=== PATIENT | female | born 1995 | race Caucasian/White ===

== ENCOUNTER 2020-06-08 12:40 | Emergency (ER) | payer OTHER, BC, SELFPAY ==
[2020-06-08 13:00] VITALS: BP 122/74; PULSE 105; RESP 16; TEMP 37.6; O2SAT 100
--- NOTE | 2020-06-08 13:03 | ED.EAR ---
HPI - Ear Problem General Chief complaint: Ear Stated complaint: left ear pain Time Seen by Provider: 06/08/20 12:58 Source: patient and RN notes reviewed Mode of arrival: ambulatory Limitations: no limitations History of Present Illness HPI Narrative: 24-year-old female presents with concern for left ear pain. Reports pain started yesterday. Reports drainage from the left ear. Denies any rhinorrhea, nasal congestion, sore throat, fever. MD Complaint: ear pain Related Data Home Medications Medication Instructions Recorded Confirmed Medical Cannibas 08/21/19 aripiprazole [Abilify] 15 mg PO DAILY 08/21/19 08/21/19 bupropion HCl [Wellbutrin XL] 150 mg PO QAM 08/21/19 08/21/19 escitalopram oxalate [Lexapro] 5 mg PO DAILY 08/21/19 08/21/19 escitalopram oxalate [Lexapro] 20 mg PO DAILY 08/21/19 08/21/19 hydroxyzine pamoate [Vistaril] 50 mg PO BID 08/21/19 08/21/19 levothyroxine 25 mcg PO DAILY 08/21/19 08/21/19 Allergies Allergy/AdvReac Type Severity Reaction Status Date / Time No Known Allergies Allergy Verified 08/21/19 17:42 Review of Systems Review of Systems: Narrative: CONSTITUTIONAL: Denies malaise, chills, sweats, or fever. EYES: Denies visual changes, redness, or discharge. ENT: Denies rhinorrhea, congestion, sinus pain, and sore throat. Reports right ear pain and drainage CARDIOVASCULAR: Denies chest pain, palpitations, or edema. RESPIRATORY: Denies cough or dyspnea. GASTROINTESTINAL: Denies abdominal pain, nausea, vomiting, diarrhea SKIN: Denies rash or itching. MUSCULOSKELETAL: Denies myalgia. NEUROLOGIC: Denies headache. All systems reviewed & are unremarkable except as noted in HPI and below PMFSH Comments At time of signature, agree with nursing past medical, surgical, social and family history. There is no relevant family history pertinent to the presenting complaint Exam Narrative: Exam Narrative: GENERAL: Well-appearing, well-nourished, and in no acute distress. HEAD: Normocephalic EYES: PERRLA, conjunctivae clear ENT: Nares clear, turbinates clear. Mucous membranes moist. TM pearly connell with sharp light reflex bilaterally; left tragal tenderness with edema and erythema noted to the auditory canal, no drainage noted. NECK: Supple. No lymphadenopathy CHEST: No respiratory distress, speaks in full sentences. HEART: Regular rate and rhythm. No murmur heard. SKIN: Warm, dry, no rash. NEURO: Alert and oriented x3. PSYCH: Normal mood and affect Course Course Emergency Course: Patient is aware of diagnosis, understands and agrees to treatment plan. Anticipatory guidance given. Patient agrees to follow-up as directed and is aware of reasons to seek care at the emergency department. Portions of this record may have been created with voice recognition software Vital Signs Vital signs: Vital Signs Temperature 99.6 F 06/08/20 13:00 Pulse Rate 105 H 06/08/20 13:00 Respiratory Rate 16 06/08/20 13:00 Blood Pressure 122/74 06/08/20 13:00 Pulse Oximetry 100 06/08/20 13:00 Temperature 99.6 F 06/08/20 13:00 Pulse Rate 105 H 06/08/20 13:00 Respiratory Rate 16 06/08/20 13:00 Blood Pressure 122/74 06/08/20 13:00 Pulse Oximetry 100 06/08/20 13:00 Reviewed. Medical Decision Making MDM Narrative Medical decision making narrative: Differential diagnosis considered: [place] virus, strep pharyngitis, allergic rhinitis, upper respiratory tract infection, sinusitis, rhinosinusitis, nasopharyngitis. viral pharyngitis, otitis media, otitis externa, pneumonia, bronchitis, viral cough syndrome, viral syndrome, and influenza. Exam findings show no acute concerns or changes; patient is non-toxic appearing and is in no distress. Patient is appropriate for outpatient treatment and follow-up. Vital Signs Vital Signs: Vital Signs Temperature 99.6 F 06/08/20 13:00 Pulse Rate 105 H 06/08/20 13:00 Respiratory Rate 16 06/08/20 13:00 Blood Pressure 122/74 06/08/20 13:00 Pulse Oximet
== END 2020-06-08 13:12 | disposition home or self-care (01) ==
PROVIDERS: Emergency Provider Nurse Practitioner
DX: H60.502 Unspecified acute noninfective otitis externa, left ear (principal)
CPT/HCPCS: 99213; G0463

== ENCOUNTER 2020-06-11 09:18 | Emergency (ER) | payer BC, SELFPAY ==
[2020-06-11 09:27] VITALS: BP 131/67; PULSE 98; RESP 16; TEMP 37.2; O2SAT 100
--- NOTE | 2020-06-11 09:39 | ED.GENADULT ---
HPI - General Adult General Chief complaint: Ear Stated complaint: Ear pain Time Seen by Provider: 06/11/20 09:39 Source: patient and RN notes reviewed Mode of arrival: ambulatory Limitations: no limitations History of Present Illness HPI narrative: 24-year-old female presents with complaints of increase left otalgia, itching, swelling, and decrease hearing for the past 4 days. Adalberto says symptoms continue to increase with pain and now has right otalgia. She was here at the [facility] 3 days ago and treated for Externa Otitis with Cortisporin-TC ear drops, Ibuprofen (800mg, last on 06/10/20), and Tylenol (1,000mg last this morning) without improvement. Exacerbation factors consists of yawing and chewing. Denies swimming or getting water into ear. Denies URI symptoms, No high fevers or chills within the last 48 hours. Denies injury to the ear. No nasal drainage and congestion. Denies nausea, vomiting, tinnitus, and dizziness. The patient reports she have not been diagnosed with COVID-19. The patient reports she is not waiting for the results of a COVID-19 lab test. The patient reports she do not have fever, chills, weakness, or fatigue. The patient reports she do not have a new or worsening cough or shortness of breath. Denies chest pain. The patient reports she do not have any rhinorrhea, congestion, sore throat, loss of taste, nausea, vomiting, abdominal pain, and diarrhea. Tolerating po intake well. Denies recent traveling. Denies concerns for COVID-19 or exposures been home with limited outdoor exposure except for essential household needs, work, and return home. At this time, patient is not suspected of having COVID-19. Some parts of this dictation were generated by voice recognition software and may contain typographical and/or grammatical inaccuracies. Related Data Home Medications Medication Instructions Recorded Confirmed Medical Cannibas 08/21/19 aripiprazole [Abilify] 15 mg PO DAILY 08/21/19 06/11/20 bupropion HCl [Wellbutrin XL] 150 mg PO QAM 08/21/19 06/11/20 escitalopram oxalate [Lexapro] 5 mg PO DAILY 08/21/19 06/11/20 escitalopram oxalate [Lexapro] 20 mg PO DAILY 08/21/19 06/11/20 hydroxyzine pamoate [Vistaril] 50 mg PO BID 08/21/19 06/11/20 levothyroxine 25 mcg PO DAILY 08/21/19 06/11/20 clonidine HCl 0.1 mg PO DAILY 06/11/20 06/11/20 Allergies Allergy/AdvReac Type Severity Reaction Status Date / Time No Known Allergies Allergy Verified 06/11/20 09:34 Review of Systems Review of Systems: Narrative: CONSTITUTIONAL: Denies fever, chills, sweats. EYES: Denies visual changes, redness, discharge. ENT: Denies rhinorrhea, congestion, sore throat. Complains of bilateral otalgia, LT ear itching, swelling, decrease hearing. CARDIOVASCULAR: Denies chest pain, palpitations, edema. RESPIRATORY: Denies dyspnea, wheezing, cough. GASTROINTESTINAL: Denies abdominal pain, nausea, vomiting, diarrhea. GENITOURINARY: Denies dysuria, hematuria, abnormal discharge. SKIN: Denies rash or itching. MUSCULOSKELETAL: Denies acute back pain, joint pain, or myalgia. NEUROLOGIC: Denies numbness or focal weakness. PSYCHIATRIC: Denies anxiety or depression. All systems reviewed & are unremarkable except as noted in HPI and below. [facility] Past Medical History Medical History (Updated 06/12/20 @ 00:00 by [facility] Daemjoann) Anxiety Broken arm LT Depression History of IBS Hypothyroidism Post traumatic stress disorder (PTSD) Surgical History Surgical History (Updated 06/11/20 @ 16:32 by [facility] Robison) History of colonoscopy Family History Family History (Updated 06/11/20 @ 16:32 by XU Robison) Father Depression Mother Depression Social History Social History (Updated 06/11/20 @ 16:33 by XU Robison) Smoking status: Never smoker Tobacco type: cigarettes Second hand tobacco smoke exposure: No Alcohol intake: current Substance use: current Substance use
== END 2020-06-11 09:59 | disposition home or self-care (01) ==
PROVIDERS: Emergency Provider Nurse Practitioner Family
DX: H60.92 Unspecified otitis externa, left ear (principal); J02.9 Acute pharyngitis, unspecified; F41.9 Anxiety disorder, unspecified; F32.9 Major depressive disorder, single episode, unspecified; E03.9 Hypothyroidism, unspecified
CPT/HCPCS: 99213; G0463

== ENCOUNTER 2021-01-20 22:18 | Emergency (ER) | payer OTHER, MEDICAID, SELFPAY ==
--- NOTE | ~2021-01-20 | XR_ITS ---
EXAMINATION: XR thoracic spine 3V DATE: 01/20/2021 23:11 INDICATION: Back pain. TECHNIQUE: 3 views of thoracic spine were obtained. COMPARISON: None. FINDINGS: There is 3 degrees dextrocurvature of thoracic spine. Vertebral body heights and interverte bral disc heights are normal. There are endplate osteophytes at many levels. IMPRESSION: 1. Mild thoracic spondylosis. Reviewed, dictated and finalized at location A.
[2021-01-20 22:21] VITALS: BP 120/101; PULSE 83; RESP 16; TEMP 36.8; O2SAT 100
[2021-01-20] MEDS: CYCLOBENZAPRINE HCL 10 MG TABLET PO (23:15)
[2021-01-20] MEDS: KETOROLAC (*BKC) 60 MG/2 ML VIAL IM (23:16)
[2021-01-20] MEDS: MORPHINE SULFATE (*CRX) 4 MG/ML INJ IM (23:16)
--- NOTE | 2021-01-21 00:02 | ED.GENADULT ---
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 The patient states she completed a course of steroids and held off getting an additional round because of her COVID-19 vaccination. The patient states she is having midthoracic back pain at the level of her bra strap. The patient denies any weakness in her arms or legs denies bowel or bladder dysfunction. Related Data Home Medications Medication Instructions Recorded Confirmed Medical Cannibas 08/21/19 aripiprazole [Abilify] 15 mg PO DAILY 08/21/19 06/11/20 bupropion HCl [Wellbutrin XL] 150 mg PO QAM 08/21/19 06/11/20 escitalopram oxalate [Lexapro] 5 mg PO DAILY 08/21/19 06/11/20 escitalopram oxalate [Lexapro] 20 mg PO DAILY 08/21/19 06/11/20 hydroxyzine pamoate [Vistaril] 50 mg PO BID 08/21/19 06/11/20 levothyroxine 25 mcg PO DAILY 08/21/19 06/11/20 clonidine HCl 0.1 mg PO DAILY 06/11/20 06/11/20 Allergies Allergy/AdvReac Type Severity Reaction Status Date / Time No Known Allergies Allergy Verified 06/11/20 09:34 Review of Systems Review of Systems: Narrative: A 10 system review of systems was completed on the patient and is negative except for what is stated in the HPI. Nursing and ancillary documentation was reviewed. [facility] Past Medical History Medical History Anxiety Broken arm LT Depression History of IBS Hypothyroidism Post traumatic stress disorder (PTSD) Surgical History Surgical History History of colonoscopy Family History Family History Father Depression Mother Depression Social History Social History Smoking status: Never smoker Tobacco type: cigarettes Second hand tobacco smoke exposure: No Alcohol intake: current Substance use: current Substance use type: marijuana Gender identity (if verbalized by the patient): Female Exam Narrative: Exam Narrative: GENERAL: Well-appearing, well-nourished, and in no acute distress. HEAD: Normocephalic, atraumatic. EYES: PERRLA and EOMI. ENT: Nares clear, no rhinorrhea or epistaxis. Mucous membranes moist. NECK: Supple. CHEST: Clear to auscultation. No respiratory distress. There is tenderness to palpation in the low thoracic spine HEART: Regular rate and rhythm. No murmur heard. Normal peripheral pulses. ABDOMEN: Soft, nontender, nondistended, normal active bowel sounds. EXTREMITIES: Normal range of motion. No edema. SKIN: Warm, dry, no rash. NEURO: No focal deficits. Alert and oriented x3. PSYCH: Normal mood and affect. Course Course Emergency Course: Plain film x-ray showed no evidence of fracture Vital Signs Vital signs: Vital Signs Temperature 36.8 C 01/20/21 22: Pulse Rate 83 01/20/21 22:21 Respiratory Rate 16 01/20/21 22:21 Blood Pressure 120/101 H 01/20/21 22:21 Pulse Oximetry 100 01/20/21 22:21 Temperature 36.8 C 01/20/21 22:21 Pulse Rate 83 01/20/21 22:21 Respiratory Rate 16 01/20/21 22:21 Blood Pressure 120/101 H 01/20/21 22:21 Pulse Oximetry 100 01/20/21 22:21 Medical Decision Making Vital Signs Vital Signs: Vital Signs Temperature 36.8 C 01/20/21 22:21 Pulse Rate 83 01/20/21 22:21 Respiratory Rate 16 01/20/21 22:21 Blood Pressure 120/101 H 01/20/21 22:21 Pulse Oximetry 100 01/20/21 22:21 Temperature 36.8 C 01/20/21 22:21 Pulse Rate 83 01/20/21 22:21 Respiratory Rate 16 01/20/21 22:21 Blood Pressure 120/101 H 01/20/21 22:21 Puls
[2021-01-21 00:20] VITALS: BP 117/72; PULSE 78; RESP 16; O2SAT 100
== END 2021-01-21 00:20 | disposition home or self-care (01) ==
PROVIDERS: Emergency Provider Emergency Medicine
DX: M54.6 Pain in thoracic spine (principal); F41.9 Anxiety disorder, unspecified; F32.9 Major depressive disorder, single episode, unspecified; E03.9 Hypothyroidism, unspecified
CPT/HCPCS: 72072; 96372; 99284; A9270; J1885; J2270

== ENCOUNTER 2021-03-19 15:37 | Emergency (ER) | payer OTHER, MEDICAID, SELFPAY ==
[2021-03-19 15:48] VITALS: BP 128/98; PULSE 105; RESP 16; TEMP 36.5; O2SAT 100
--- NOTE | 2021-03-19 16:16 | ED.FEMALEGU ---
HPI - Female Genitourinary General Chief complaint: Urogenital-Female Stated complaint: STD Test Time Seen by Provider: 03/19/21 16:16 Source: patient and RN notes reviewed Mode of arrival: ambulatory Limitations: no limitations History of Present Illness HPI Narrative: 25-year-old female presents to the [facility] with concerns for a STD. Patient reports that she does have concerns because her boyfriend cheated on her. Denies any symptoms. No vaginal discharge. Denies any open sores. States I am just being precautionary. Denies any abdominal pain, nausea, vomiting or diarrhea. No fevers Related Data Home Medications Medication Instructions Recorded Confirmed Medical Cannibas 08/21/19 hydroxyzine pamoate [Vistaril] 50 mg PO BID 08/21/19 03/19/21 levothyroxine 25 mcg PO DAILY 08/21/19 03/19/21 baclofen 10 mg PO DAILY 03/19/21 03/19/21 bupropion HCl 75 mg PO DAILY 03/19/21 03/19/21 duloxetine 60 mg PO DAILY 03/19/21 03/19/21 escitalopram oxalate 20 mg PO DAILY 03/19/21 03/19/21 gabapentin 300 mg PO DIRECTED 03/19/21 03/19/21 temazepam 7.5 mg PO DAILY 03/19/21 03/19/21 trazodone 50 mg PO DIRECTED 03/19/21 03/19/21 Allergies Allergy/AdvReac Type Severity Reaction Status Date / Time No Known Allergies Allergy Verified 03/19/21 16:04 Review of Systems Review of Systems: All systems reviewed & are unremarkable except as noted in HPI and below Constitutional: Constitutional: Reports no additional constitutional complaints, Denies chills and Denies fatigue Cardiovascular: Cardiovascular: Reports no additional cardiovascular complaints and Denies chest pain Respiratory: Respiratory: Reports no additional respiratory complaints, Denies cough and Denies dyspnea Gastrointestinal: Gastrointestinal: Reports no additional gastrointestinal complaints, Denies abdominal pain, Denies diarrhea, Denies nausea and Denies vomiting Genitourinary: Genitourinary: Reports no additional female genitourinary complaints, Denies nocturia, Denies genital lesions, Denies dysuria, Denies pelvic pain, Denies flank pain and Denies vaginal discharge Musculoskeletal: Musculoskeletal: Reports no additional musculoskeletal complaints, Denies back pain, Denies myalgias, Denies joint swelling and Denies muscle cramps Integumentary/Breasts: Skin/Breast: Reports system reviewed and no additional complaints, except as docu Neurologic: Reports system reviewed and no additional complaints, except as documented Psychiatric: Psychiatric: Reports no additional psychiatric complaints Allergic/Immunologic: Allergic/Immunologic: Reports no additional allergic/immunologic complaints PMFSH Past Medical History Medical History Anxiety Broken arm LT Depression History of IBS Hypothyroidism Post traumatic stress disorder (PTSD) Surgical History Surgical History History of colonoscopy Family History Family History Father Depression Mother Depression Social History Social History Smoking status: Never smoker Tobacco type: cigarettes Second hand tobacco smoke exposure: No Alcohol intake: current Substance use: current Substance use type: marijuana Gender identity (if verbalized by the patient): Female Comments At the time of my signature, I reviewed and agree with the nursing past medical, surgical, social, and family history. There is no relevant family history pertinent to the patient complaint. Exam Const: General: healthy appearing, no acute distress and alert Nutritional Appearance: well nourished and obese Orientation/consciousness: patient oriented x3 Limitations: no limitations HENMT: Head: normal to inspection Eyes: Pupils: Equal, round and reactive pupils present
== END 2021-03-19 16:32 | disposition home or self-care (01) ==
PROVIDERS: Emergency Provider Nurse Practitioner
DX: Z20.2 Contact with and (suspected) exposure to infections with a predominantly sexual mode of transmission (principal); E03.9 Hypothyroidism, unspecified; F41.9 Anxiety disorder, unspecified; F32.9 Major depressive disorder, single episode, unspecified
CPT/HCPCS: 81003; 87491; 87591; 87661; 99214; G0463

== ENCOUNTER 2021-04-01 18:58 | Emergency (ER) | payer OTHER, MEDICAID, SELFPAY ==
[2021-04-01 19:06] VITALS: BP 130/100; PULSE 106; RESP 16; TEMP 36.3; O2SAT 98
[2021-04-01 19:11] VITALS: BP 130/100; PULSE 106; RESP 16; TEMP 36.3; O2SAT 98
--- NOTE | 2021-04-01 19:29 | ED.GENADULT ---
HPI - General Adult General Chief complaint: Abdominal Pain Stated complaint: blood in stool Time Seen by Provider: 04/01/21 19:29 Source: patient and RN notes reviewed Mode of arrival: ambulatory Limitations: no limitations History of Present Illness HPI narrative: 25-year-old female presents with complaints of bloody stool and intermittent abdominal cramping for the past 18 days. Madelynne reports noting rectal bleeding since 03/10/21 and intermittent abdominal cramping over the past 24 hours. Hemorrhoid cooling gel and witch anna pad without relief. Bright red blood on toilet paper after wiping and in the toilet after defecation. LMB on 03/31/21 with noted blood. Complaints of intermittent episodes of constipation. History of Inflammatory bowel diarrhea specific. Denies history of hemorrhoids or rectal polyps. Family history of rectal bleeding. Denies rectal pain or rectal trauma. Denies night sweats, fever, or weight loss, diarrhea, and tenesmus. Denies nausea or vomiting. Denies dysuria or hematuria. Tolerating po intake well. LMP unknown due to IUD in place. Remains active. The patient reports she has not been diagnosed with COVID-19. The patient reports she received 2 Pfizer COVID-19 vaccines. The patient reports she is not waiting for the results of a COVID-19 lab test. The patient reports he does not have chills, weakness, fatigue, or myalgia. The patient reports she does not have a new or worsening cough or shortness of breath. The patient reports he does not have any rhinorrhea, congestion, loss of taste, and sore throat. Denies recent traveling. Denies concerns for COVID-19 or exposures. At this time, the patient is not suspected of having COVID-19 Some parts of this dictation were generated by voice recognition software and may contain typographical and/or grammatical inaccuracies. Related Data Home Medications Medication Instructions Recorded Confirmed Medical Cannibas 08/21/19 hydroxyzine pamoate [Vistaril] 50 mg PO BID 08/21/19 04/01/21 levothyroxine 25 mcg PO DAILY 08/21/19 04/01/21 baclofen 10 mg PO TID PRN 03/19/21 04/01/21 bupropion HCl 75 mg PO DAILY 03/19/21 04/01/21 duloxetine 60 mg PO DAILY 03/19/21 04/01/21 gabapentin 300 mg PO TID 03/19/21 04/01/21 temazepam 7.5 mg PO DAILY 03/19/21 04/01/21 propranolol 10 mg PO BID PRN 04/01/21 04/01/21 Allergies Allergy/AdvReac Type Severity Reaction Status Date / Time hydrocodone AdvReac Nausea Verified 04/01/21 19:31 Review of Systems Review of Systems: Narrative: CONSTITUTIONAL: Denies fever, chills, sweats. EYES: Denies visual changes, redness, discharge. ENT: Denies rhinorrhea, congestion, sore throat, otalgia. CARDIOVASCULAR: Denies chest pain, palpitations, edema. RESPIRATORY: Denies dyspnea, wheezing, cough. GASTROINTESTINAL: Complains of bloody stools and intermittent lower abdominal pain. Denies nausea, vomiting, diarrhea. GENITOURINARY: Denies dysuria, hematuria, abnormal discharge. SKIN: Denies rash or itching. MUSCULOSKELETAL: Denies acute back pain or myalgia. NEUROLOGIC: Denies numbness or focal weakness. PSYCHIATRIC: Denies anxiety or depression. All systems reviewed & are unremarkable except as noted in HPI and below. [facility] Past Medical History Medical History Anxiety Broken arm LT Depression History of IBS Hypothyroidism Post traumatic stress disorder (PTSD) Surgical History Surgical History History of colonoscopy Family History Family History Father Depression Mother Depression Social History Social History Smoking status: Never smoker Tobacco type: cigarettes Second hand tobacco smoke exposure: No Alcohol intake: current Substance use: current Substance use type
[2021-04-01 20:15] VITALS: BP 130/92; PULSE 95
== END 2021-04-01 20:15 | disposition home or self-care (01) ==
PROVIDERS: Emergency Provider Nurse Practitioner Family
DX: K62.5 Hemorrhage of anus and rectum (principal); F41.9 Anxiety disorder, unspecified; F32.9 Major depressive disorder, single episode, unspecified; E03.9 Hypothyroidism, unspecified
CPT/HCPCS: 81003; 99212; G0463